=== PATIENT | male | born 1985 | race Caucasian/White ===

== ENCOUNTER 2018-07-29 16:50 | Emergency (ER) | payer OTHER ==
[~2018-07-29] VITALS: Ht 182.9 cm; Wt 86.2 kg
[~2018-07-29 16:50] MED LIST: CYCLOBENZAPRINE5 MG PO
[2018-07-29] MEDS ORDERED: NORCO 5-325 TA1 EACH PO (18:03)
[2018-07-29] MEDS ORDERED: IBUPROFEN 800800 M1 PO (18:03)
[2018-07-29 18:25] VITALS: BP 140/98
== END 2018-07-29 18:25 | disposition home or self-care (01) ==
LOC: M.ERS 16:50
DX: M54.6 Pain in thoracic spine (principal); W13.8XXA Fall from, out of or through other building or structure, initial encounter; Y93.89 Activity, other specified; Y92.89 Other specified places as the place of occurrence of the external cause; Y99.8 Other external cause status

== ENCOUNTER 2018-07-31 12:36 | Emergency (ER) | payer OTHER ==
[~2018-07-31] VITALS: Ht 182.9 cm; Wt 90.7 kg
[~2018-07-31 12:36] MED LIST changes: +IBUPROFEN 800800 M1 PO; +NORCO 5-325 TA1 EACH PO
[2018-07-31] MEDS ORDERED: TORADOL 10 MG T10 MG PO (13:20)
[2018-07-31 13:45] VITALS: BP 131/91
== END 2018-07-31 13:47 | disposition home or self-care (01) ==
LOC: M.ERS 12:36
DX: M54.6 Pain in thoracic spine (principal); G89.29 Other chronic pain

== ENCOUNTER 2019-05-09 21:27 | Emergency (ER) | payer OTHER ==
[~2019-05-09] VITALS: Ht 182.9 cm; Wt 90.7 kg
[~2019-05-09 21:27] MED LIST changes: +TORADOL 10 MG T10 MG PO
[2019-05-09 22:16] LABS: ABSOLUTE BASOPHILS 0.1 thou/uL (0.0-0.2); ABSOLUTE EOSINOPHILS 0.1 thou/uL (0.0-0.7); ABSOLUTE MONOCYTES 0.6 thou/uL (0.0-1.2); ABSOLUTE NEUTROPHILS 4.3 thou/uL (1.6-8.1); BASOPHILS 0.7 %; EOSINOPHILS 1.2 %; HEMATOCRIT 42.8 % (42.0-52.0); HEMOGLOBIN 15.2 gm/dL (14.0-18.0); LYMPHOCYTES 37.4 %; MCH 32.5 pg (26.0-34.0); MCHC 35.5 g/dL (28.0-37.0); MCV 91.7 fL (80.0-100.0); MONOCYTES 6.9 %; MPV 8.7 fl. (7.2-11.1); NUCLEATED RBCS 0 /100WBC; PLATELET COUNT* 260 thou/uL (150-400); POLYS 53.8 %; RBC 4.67 mil/uL (4.50-6.00); RDW-CV 13.1 % (10.5-14.5)
[2019-05-09 22:22] LABS: CREATININE 1.1 mg/dL (0.6-1.3); POTASSIUM 3.5 mmol/L (3.5-5.1)
[2019-05-09 22:32] LABS: ALBUMIN 3.8 g/dL (3.4-5.0); TOTAL BILIRUBIN 0.3 mg/dL (<0.1-1.0); TOTAL PROTEIN 7.7 g/dL (6.4-8.2)
[2019-05-09 22:59] LABS: URINE BILIRUBIN NEGATIVE (Negative); URINE BLOOD NEGATIVE (Negative); URINE CLARITY CLEAR; URINE COLOR YELLOW; URINE GLUCOSE-RANDOM NEGATIVE (Negative); URINE KETONES TRACE (Negative); URINE LEUKOCYTES-REFLEX NEGATIVE (Negative); URINE NITRITE-REFLEX NEGATIVE (Negative); URINE PROTEIN NEGATIVE (Negative); URINE UROBILINOGEN 0.2 E.U./dl (0.2-1.0)
[2019-05-10] MEDS ORDERED: BACTRIM DS TAB1 EACH PO (01:37)
[2019-05-10] MEDS ORDERED: HYDROCODON-ACE1 EAC8 PO (01:39)
[2019-05-10 01:55] VITALS: BP 139/85
[2019-05-22] MEDS ORDERED: NORCO 5-325 TA1 EAC1 PO (17:02)
== END 2019-05-10 01:55 | disposition home or self-care (01) ==
LOC: M.ERS 21:27
PROVIDERS: Physician Assistant
DX: N49.2 Inflammatory disorders of scrotum (principal); G89.18 Other acute postprocedural pain; N50.811 Right testicular pain; G89.29 Other chronic pain

== ENCOUNTER 2019-05-12 19:00 | Emergency (ER) | payer OTHER ==
[~2019-05-12] VITALS: Ht 185.4 cm; Wt 95.3 kg
[~2019-05-12 19:00] MED LIST changes: +BACTRIM DS TAB1 EACH PO; +HYDROCODON-ACE1 EAC8 PO
[2019-05-12] MEDS ORDERED: KEFLEX500 M1 PO (19:14)
[2019-05-12 19:39] LABS: URINE BILIRUBIN NEGATIVE (Negative); URINE BLOOD NEGATIVE (Negative); URINE CLARITY CLEAR; URINE COLOR YELLOW; URINE GLUCOSE-RANDOM NEGATIVE (Negative); URINE KETONES NEGATIVE (Negative); URINE LEUKOCYTES-REFLEX NEGATIVE (Negative); URINE NITRITE-REFLEX NEGATIVE (Negative); URINE PROTEIN NEGATIVE (Negative); URINE SPECIFIC GRAVITY 1.025 (1.005-1.030); URINE UROBILINOGEN 0.2 E.U./dl (0.2-1.0)
[2019-05-12 19:52] LABS: ABSOLUTE LYMPHOCYTES 2.3 thou/uL (0.8-5.3); ABSOLUTE MONOCYTES 0.4 thou/uL (0.0-1.2); ABSOLUTE NEUTROPHILS 3.1 thou/uL (1.6-8.1); BASOPHILS 0.8 %; EOSINOPHILS 0.8 %; HEMATOCRIT 43.9 % (42.0-52.0); HEMOGLOBIN 15.7 gm/dL (14.0-18.0); LYMPHOCYTES 38.4 %; MCH 32.6 pg (26.0-34.0); MCHC 35.7 g/dL (28.0-37.0); MCV 91.4 fL (80.0-100.0); MONOCYTES 7.2 %; NUCLEATED RBCS 0 /100WBC; PLATELET COUNT* 278 thou/uL (150-400); POLYS 52.8 %; WBC 5.9 thou/uL (4.0-11.0)
[2019-05-12 19:59] LABS: CALCIUM 8.5 mg/dL (8.5-10.1); CREATININE 1.1 mg/dL (0.6-1.3); POTASSIUM 4.1 mmol/L (3.5-5.1)
[2019-05-12] MEDS ORDERED: LEVAQUIN 500 M500 M3 PO (21:45)
[2019-05-12] MEDS ORDERED: NORCO 5-325 TA1 EAC1 PO (21:59)
[2019-05-12 22:03] VITALS: BP 155/98
[2019-05-22] MEDS ORDERED: NORCO 5-325 TA1 EAC1 PO (17:02)
== END 2019-05-12 22:03 | disposition home or self-care (01) ==
LOC: M.ERS 19:00
PROVIDERS: Emergency Medicine Emergency Medical Services
DX: G89.18 Other acute postprocedural pain (principal); N45.1 Epididymitis

== ENCOUNTER 2019-05-22 16:26 | Emergency (ER) | payer OTHER ==
[~2019-05-22] VITALS: Ht 182.9 cm; Wt 95.3 kg
[~2019-05-22 16:26] MED LIST changes: +KEFLEX500 M1 PO; +LEVAQUIN 500 M500 M3 PO; +NORCO 5-325 TA1 EAC1 PO
[2019-05-22] MEDS ORDERED: NORCO 5-325 TA1 EAC1 PO ×2 (17:02)
[2019-05-22 17:06] VITALS: BP 140/95
== END 2019-05-22 17:12 | disposition home or self-care (01) ==
LOC: M.ERS 16:26
DX: G89.18 Other acute postprocedural pain (principal); M54.9 Dorsalgia, unspecified; Z76.0 Encounter for issue of repeat prescription; Z98.52 Vasectomy status

== ENCOUNTER 2019-05-26 16:04 | Emergency (ER) | payer OTHER ==
[~2019-05-26] VITALS: Ht 182.9 cm; Wt 95.3 kg
[2019-05-26] MEDS ORDERED: NAPROSYN500 MG PO (16:48)
[2019-05-26 16:55] VITALS: BP 143/86
== END 2019-05-26 16:55 | disposition home or self-care (01) ==
LOC: M.ERS 16:04
DX: S91.332A Puncture wound without foreign body, left foot, initial encounter (principal); W22.8XXA Striking against or struck by other objects, initial encounter; Y93.89 Activity, other specified; Y92.89 Other specified places as the place of occurrence of the external cause; Y99.8 Other external cause status

== ENCOUNTER 2019-08-06 14:10 | Emergency (ER) | payer OTHER ==
[~2019-08-06] VITALS: Ht 182.9 cm; Wt 95.3 kg
[~2019-08-06 14:10] MED LIST changes: +NAPROSYN500 MG PO
[2019-08-06 14:33] LABS: URINE BILIRUBIN NEGATIVE (Negative); URINE BLOOD NEGATIVE (Negative); URINE CLARITY CLEAR; URINE COLOR YELLOW; URINE GLUCOSE-RANDOM NEGATIVE (Negative); URINE KETONES NEGATIVE (Negative); URINE LEUKOCYTES-REFLEX NEGATIVE (Negative); URINE NITRITE-REFLEX NEGATIVE (Negative); URINE PROTEIN NEGATIVE (Negative); URINE SPECIFIC GRAVITY 1.015 (1.005-1.030); URINE UROBILINOGEN 0.2 E.U./dl (0.2-1.0)
[2019-08-06 15:48] LABS: ABSOLUTE BASOPHILS 0.1 thou/uL (0.0-0.2); ABSOLUTE LYMPHOCYTES 2.2 thou/uL (0.8-5.3); ABSOLUTE MONOCYTES 0.8 thou/uL (0.0-1.2); ABSOLUTE NEUTROPHILS 4.8 thou/uL (1.6-8.1); BASOPHILS 0.9 %; EOSINOPHILS 0.3 %; HEMATOCRIT 46.7 % (42.0-52.0); HEMOGLOBIN 16.4 gm/dL (14.0-18.0); MCH 31.9 pg (26.0-34.0); MCHC 35.1 g/dL (28.0-37.0); MCV 90.8 fL (80.0-100.0); MONOCYTES 9.6 %; MPV 9.5 fl. (7.2-11.1); NUCLEATED RBCS 0 /100WBC; PLATELET COUNT* 257 thou/uL (150-400); POLYS 61.2 %; RBC 5.14 mil/uL (4.50-6.00); WBC 7.9 thou/uL (4.0-11.0)
[2019-08-06 16:04] LABS: CALCIUM 8.6 mg/dL (8.5-10.1); CREATININE 0.9 mg/dL (0.6-1.3); POTASSIUM 3.7 mmol/L (3.5-5.1)
[2019-08-06 16:08] LABS: TOTAL BILIRUBIN 0.3 mg/dL (<0.1-1.0); TOTAL PROTEIN 8.1 g/dL (6.4-8.2)
[2019-08-06] MEDS ORDERED: TRAMADOL 50 MG50 MG PO (16:31)
[2019-08-06] MEDS ORDERED: IBUPROFEN 800800 M1 PO (16:31)
[2019-08-06 16:43] VITALS: BP 145/92
== END 2019-08-06 16:45 | disposition home or self-care (01) ==
LOC: M.ERS 14:10
PROVIDERS: Nurse Practitioner Family
DX: I86.1 Scrotal varices (principal); N43.3 Hydrocele, unspecified

== ENCOUNTER 2020-09-11 14:11 | Emergency (ER) | payer OTHER ==
[~2020-09-11] VITALS: Ht 182.9 cm; Wt 90.7 kg
[~2020-09-11 14:11] MED LIST changes: +TRAMADOL 50 MG50 MG PO
[2020-09-11] MEDS ORDERED: LEXAPRO 10 MG T10 M2 PO (14:40)
[2020-09-11 15:32] VITALS: BP 142/90
== END 2020-09-11 15:33 | disposition home or self-care (01) ==
LOC: M.ERS 14:11
DX: M25.562 Pain in left knee (principal)

== ENCOUNTER 2021-04-13 19:23 | Emergency (ER) | payer OTHER ==
[~2021-04-13] VITALS: Ht 182.9 cm; Wt 97.5 kg
[~2021-04-13 19:23] MED LIST changes: +LEXAPRO 10 MG T10 M2 PO
[2021-04-13] MEDS ORDERED: CEPHALEXIN500 MG PO (20:21)
[2021-04-13] MEDS ORDERED: CIPRO500 M1 PO (20:21)
[2021-04-13] MEDS ORDERED: ULTRAM 50MG TAB50 MG PO (20:22)
[2021-04-13 20:32] VITALS: BP 132/82
== END 2021-04-13 20:33 | disposition home or self-care (01) ==
LOC: M.ERS 19:23
DX: S91.331A Puncture wound without foreign body, right foot, initial encounter (principal); Z98.890 Other specified postprocedural states; W22.8XXA Striking against or struck by other objects, initial encounter; Y93.89 Activity, other specified; Y92.89 Other specified places as the place of occurrence of the external cause; Y99.8 Other external cause status